=== PATIENT | male | born 1965 ===

== ENCOUNTER 2018-07-26 01:40 | Inpatient (IN) ==
[2018-07-26] MEDS ORDERED: ALBUT/IPRATROP 3MG/0.5MG NEB 3 ML VIAL NEB ONE (01:52)
[2018-07-26] MEDS ORDERED: MAGNESIUM SULFATE / D5W 1 GM/100 ML BAG IV ONE (01:52)
[2018-07-26] MEDS ORDERED: cefTRIAXone SODIUM 1,000 MG/50 ML BAG IV STA (02:07)
--- NOTE | 2018-07-26 02:17 | Emergency Department Note ---
History of Present Illness General Chief complaint: Shortness of Breath/Dyspnea History of Present Illness Maximum Pain Intensity: 6 This 53-year-old presents to the ER complaining of shortness of breath with productive cough yellow-green sputum who has COPD and asthma Location: Chest Quality: Hard to breathe Severity: Severe Duration: Past few days Timing: Past few days Context: Symptoms got worse and patient came here Modifying factors: better with nebulizer; worse with activity The present give the patient Solu-Medrol and prednisone today. He has had a few nebulizers. No improvement. Patient, as of chest pain and shortness of breath with productive cough. Patient denies flulike illness, abdominal pain, leg pain or swelling, fevers, vomiting, diarrhea. No history of intubation. He has not seen a lung doctor yet. Home Medications Home Medications Medication Instructions Recorded Confirmed Type bisacodyl 20 mg PO DAILY 07/06/18 07/26/18 History ciclesonide [Alvesco] 1 puff INHALATION BID 07/06/18 07/26/18 History ipratropium-albuterol 3 ml INHALATION QID PRN 07/06/18 07/26/18 History levalbuterol tartrate [Xopenex HFA] 2 inh INHALATION QID PRN 07/06/18 07/26/18 History mirtazapine 45 mg PO HS 07/06/18 07/26/18 History phenytoin sodium extended 300 mg PO HS 07/06/18 07/26/18 History salmeterol [Serevent Diskus] 1 inh INHALATION BID 07/06/18 07/26/18 History sertraline 100 mg PO HS 07/06/18 07/26/18 History umeclidinium [Incruse Ellipta] 1 inh INHALATION DAILY 07/06/18 07/26/18 History polyethylene glycol 3350 [Miralax] 17 g PO UD 07/26/18 07/26/18 History polyethylene glycol 3350 [Miralax] 17 g PO UD 07/26/18 07/26/18 History Allergies Allergy/AdvReac Type Severity Reaction Status Date / Time Penicillins Allergy Unknown Unverified 07/26/18 04:34 Past Med/Surg History Medical History Bronchitis COPD (chronic obstructive pulmonary disease) Surgical History History of open heart surgery Social History Current Living Situation: Other Current Living Situation Comment: [place] Other Information That Helps Us Care for You: No Feels Safe at Home: Yes Safety Concerns: Feels Safe At This Time Smoking Status: Former smoker Tobacco Type: cigarettes Do You Dip or Chew Tobacco: No Smoking End Date: 7 years ago Second Hand Exposure: Yes Tobacco Cessation Education Requested by Patient: No Hx Alcohol Use: No Hx Substance Use: No Beliefs That Will Affect Care: None Communication Ability: Effective [employer] Tenn[employer] Required: No Review of Systems All systems reviewed & are unremarkable except as noted in HPI & below Physical Exam Vital Signs Vital Signs - 24 hr 07/26/18 01:43 07/26/18 02:00 07/26/18 02:05 Temperature 37.0 C Temperature Source Oral Sepsis Recent Fever Within 48 Hours No Sepsis Action Taken by Nursing No Action Required Pulse Rate 146 H 124 H Pulse Rate [Radial] 117 H Pulse Rate from SpO2 Sensor 122 H Pulse Rhythm Regular Pulse Rhythm [Radial] Pulse Strength Normal Pulse Strength [Radial] Respiratory Rate 30 H 15 22 Respiratory Effort / Characteristics Labored Spontaneous Respiratory Depth Normal Respiratory Pattern Tachypnea Blood Pressure 144/105 H 118/102 H Blood Pressure [Left Arm] Blood Pressure [Right Arm] Blood Pressure Mean 118 107 Blood Pressure Mean [Left Arm] Blood Pressure Mean [Right Arm] Blood Pressure Position Sitting Blood Pressure Position [Left Arm] Blood Pressure Position [Right Arm] Pulse Oximetry 92 98 99 Oxygen Delivery Method Room Air Nasal Cannula Oxygen Flow Rate 4 07/26/18 02:30 07/26/18 03:00 07/26/18 03:30 Temperature Temperature Source Sepsis Recent Fever Within 48 Hours Sepsis Action Taken by Nursing Pulse Rate 107 H 108 H Pulse Rate [Radial] Pulse Rate from SpO2 Sensor 104 H 109 H 120 H Pulse Rhythm Pulse Rhythm [Radial] Pulse Strength Pulse Strength [Radial] Respiratory Rate 14 15 17 Respiratory Effort / Characteristics Respiratory Depth Respiratory Pattern Blood Pressure 119/87 126/83 113/85 Blood Pressure [Left Arm] Blood Pressure [Right Arm] Blood Pressure Mean 97 97 94 Blood Pressure Mean [Left Arm] Blood Pressure Mean [Right Arm] Blood Pressure Position Blood Pressure Position [Left Arm] Blood Pressure Position [Right Arm] Pulse Oximetry 100 100 92 Oxygen Delivery Method Oxygen Flow Rate 07/26/18 04:00 07/26/18 04:30 07/26/18 05:03 Temperature 36.5 C Temperature Source Oral Sepsis Recent Fever Within 48 Hours Sepsis Action Taken by Nursing Pulse Rate 109 H Pulse Rate [Radial] 109 H 108 H Pulse Rate from SpO2 Sensor 109 H Pulse Rhythm Pulse Rhythm [Radial] Regular Regular Pulse Strength Pulse Strength [Radial] Normal Normal Respiratory Rate 25 H 18 20 Respiratory Effort / Characteristics Non-Labored Spontaneous SOB on Exertion Respiratory Depth Normal Normal Respiratory Pattern Regular Blood Pressure 119/78 Blood Pressure [Left Arm] 134/80 Blood Pressure [Right Arm] 133/79 Blood Pressure Mean 91 Blood Pressure Mean [Left Arm] 98 Blood Pressure Mean [Right Arm] 97 Blood Pressure Position Blood Pressure Position [Left Arm] Lying Blood Pressure Position [Right Arm] Sitting Pulse Oximetry 93 94 91 Oxygen Delivery Method Room Air Room Air Oxygen Flow Rate PHYSICAL EXAM: Vital Signs: Reviewed Nurse's notes. Oxygen saturation was 91% on room air. GENERAL: Male working to breathe in TIKI.VN, Alert, oriented and coherent. The patient is not able to speak in complete sentences. NECK: Supple , non-tender. CHEST: Symmetrical expansion. + retractions + accessory muscle use. HEART: Regular rate and normal heart sounds LUNGS: Breath sounds equal but significantly diminished in intensity on both sides. Bilateral wheezes heard but no rales or pleuritic rub. SKIN: The skin was without rashes, erythema, edema, or bruising. There is no tenting of the skin. Capillary reflex less than 2 seconds. HEAD: Normocephalic atraumatic. EARS: External auditory canals clear, tympanic membranes pearly vogel without erythema or effusion bilaterally. EYES: Pupils equal round and reactive to light and accommodation. Conjunctivae without injection, sclerae without icterus. Extraocular movements intact. NOSE: Patent, turbinates without inflammation or discharge. MOUTH: Mucous membranes moist. Pharynx without erythema or exudate. Uvula midline. Airway patent. Tongue does not deviate. ABDOMEN: Positive bowel sounds x 4. Normal tympanic percussion. Soft, nontender, without masses or organomegaly. Love sign negative. No guarding or rebound tenderness. MUSCULOSKELETAL: No muscle atrophy, erythema, or edema noted. NEURO: Patient was alert and oriented to person place and time. Normal sensation to light and sharp touch. No focal neurological deficits. Course Administered Medications Ioversol (Optiray 320 100ml) 100 ml IV ONCE PRN PRN Reason: Interaction Checking Stop: 07/30/18 04:52 Last Admin: 07/26/18 04:53 Dose: 94 ml Discontinued Medications Albuterol (Duoneb) 12 ml NEB ONE ONE Stop: 07/26/18 01:53 Last Admin: 07/26/18 02:04 Dose: 12 ml Magnesium Sulfate/Dextrose (Magnesium Sulfate / D5w) 1 gm in 100 mls @ 100 mls/ hr IV ONE ONE Stop: 07/26/18 02:51 Last Infusion: 07/26/18 02:21 Dose: 0 mls/hr Admin: 07/26/18 01:59 Dose: 300 mls/hr Ceftriaxone Sodium (Rocephin) 1,000 mg in 50 mls @ 100 mls/hr IV NOW STA Stop: 07/26/18 02:36 Last Infusion: 07/26/18 02:51 Dose: 0 mls/hr Admin: 07/26/18 02:21 Dose: 100 mls/hr Sodium Chloride (Nss 1000ml) 1,000 mls @ 999 mls/hr IV .Q1H1M ONE Stop: 07/26/18 04:17 Last Infusion: 07/26/18 05:24 Dose: 0 mls/hr Admin: 07/26/18 03:35 Dose: 999 mls/hr Medical Decision Making Medical Records Attestation: I reviewed the patient's medical records. Home Medications Current Medication List: was personally reviewed by me Laboratory Data Attestation: I reviewed the patient's lab results. Result diagrams: 07/26/18 02:05 07/26/18 02:05 Lab Results 07/26/18 07/26/18 07/26/18 Range/Units 01:48 02:03 02:05 WBC 12.05 H (4.8-10.8) K/uL RBC 4.96 (4.7-6.1) M/uL Hgb 14.3 (14.0-18.0) g/dL Hct 43.0 (42-52) % MCV 86.7 (80-100) fL MCH 28.8 (25-34) pg MCHC 33.3 (32-36) g/dL RDW Std Deviation 45.6 (36.4-46.3) fL RDW Coeff of Rodrigue 14.5 (11.5-14.5) % Plt Count 309 (130-400) K/uL MPV 9.2 (7.4-10.4) fL Immature Gran % (Auto) 0.2 % Neut % (Auto) 87.8 % Lymph % (Auto) 7.0 % Ashley % (Auto) 1.1 % Eos % (Auto) 3.5 % Baso % (Auto) 0.4 % Immature Gran # (Auto) 0.02 (0.00-0.02) K/uL Neut # (Auto) 10.59 H (1.4-6.5) K/uL Lymph # (Auto) 0.84 L (1.2-3.4) K/uL Ashley # (Auto) 0.13 (0.11-0.59) K/uL Eos # (Auto) 0.42 (0-0.5) K/uL Baso # (Auto) 0.05 (0-0.2) K/uL PT (9.0-12.0) Seconds INR (0.9-1.1) APTT (21.0-31.0) Seconds PTT Ratio ABG pH 7.37 (7.35-7.45) ABG pCO2 44 (35-46) mmHg ABG pO2 60 L (80-95) mm/Hg ABG HCO3 25 H (19-24) mmol/L ABG O2 Saturation 89.7 L (90-95) % ABG Base Excess -0.9 (-9-1.8) mEq/L Gianfranco Test POS (Pos) Barometric Pressure 744.1 mm/Hg Oxygen Given 4 L Sodium (136-145) mmol/L Potassium (3.5-5.1) mmol/L Chloride (98-107) mmol/L Carbon Dioxide (21-32) mmol/L Anion Gap (3-11) BUN (7-18) mg/dl Creatinine (0.6-1.4) mg/dl Est Cr Clr Drug Dosing ml/min Est GFR ( Amer) Est GFR (Non-Af Amer) BUN/Creatinine Ratio (10-20) Glucose (70-99) mg/dl Calcium (8.5-10.1) mg/dl Magnesium (1.8-2.4) mg/dl Total Bilirubin (0.2-1) mg/dl AST (15-37) U/L ALT (12-78) U/L Alkaline Phosphatase (45-117) U/L Lactate Dehydrogenase (87-241) U/L Troponin I (0-0.045) ng/ml Total Protein (6.4-8.2) gm/dl Albumin (3.4-5.0) gm/dl Globulin (2.5-4.0) gm/dl Albumin/Globulin Ratio (0.9-2) Specimen Hemolysis Urine Color Urine Appearance (Clear) Urine pH (4.5-7.5) Ur Specific [place] (1.000-1.030) Urine Protein (Negative) Urine Glucose (UA) (Negative) Urine Ketones (Negative) Urine Blood (Negative) Urine Nitrite (Negative) Urine Bilirubin (Negative) Urine Urobilinogen (Negative) Ur Leukocyte Esterase (Negative) Influenza Type A (PCR) Neg for Influ A (Neg) Influenza Type B (PCR) Neg for Influ B (Neg) 07/26/18 07/26/18 07/26/18 Range/Units 02:05 02:05 02:05 WBC (4.8-10.8) K/uL RBC (4.7-6.1) M/uL Hgb (14.0-18.0) g/dL Hct (42-52) % MCV (80-100) fL MCH (25-34) pg MCHC (32-36) g/dL RDW Std Deviation (36.4-46.3) fL RDW Coeff of Rodrigue (11.5-14.5) % Plt Count (130-400) K/uL MPV (7.4-10.4) fL Immature Gran % (Auto) % Neut % (Auto) % Lymph % (Auto) % Ashley % (Auto) % Eos % (Auto) % Baso % (Auto) % Immature Gran # (Auto) (0.00-0.02) K/uL Neut # (Auto) (1.4-6.5) K/uL Lymph # (Auto) (1.2-3.4) K/uL Ashley # (Auto) (0.11-0.59) K/uL Eos # (Auto) (0-0.5) K/uL Baso # (Auto) (0-0.2) K/uL PT 10.9 (9.0-12.0) Seconds INR 1.1 (0.9-1.1) APTT 27.1 (21.0-31.0) Seconds PTT Ratio 1.0 ABG pH (7.35-7.45) ABG pCO2 (35-46) mmHg ABG pO2 (80-95) mm/Hg ABG HCO3 (19-24) mmol/L ABG O2 Saturation (90-95) % ABG Base Excess (-9-1.8) mEq/L Gianfranco Test (Pos) Barometric Pressure mm/Hg Oxygen Given Sodium 140 (136-145) mmol/L Potassium 4.1 (3.5-5.1) mmol/L Chloride 109 H (98-107) mmol/L Carbon Dioxide 26 (21-32) mmol/L Anion Gap 5.0 (3-11) BUN 12 (7-18) mg/dl Creatinine 1.29 (0.6-1.4) mg/dl Est Cr Clr Drug Dosing 52.4 ml/min Est GFR ( Amer) 71.9 Est GFR (Non-Af Amer) 62.0 BUN/Creatinine Ratio 9.5 L (10-20) Glucose 129 H (70-99) mg/dl Calcium 8.5 (8.5-10.1) mg/dl Magnesium 2.5 H (1.8-2.4) mg/dl Total Bilirubin 0.3 (0.2-1) mg/dl AST 28 (15-37) U/L ALT 24 (12-78) U/L Alkaline Phosphatase 75 (45-117) U/L Lactate Dehydrogenase 250 H (87-241) U/L Troponin I 0.015 (0-0.045) ng/ml Total Protein 7.4 (6.4-8.2) gm/dl Albumin 4.1 (3.4-5.0) gm/dl Globulin 3.3 (2.5-4.0) gm/dl Albumin/Globulin Ratio 1.2 (0.9-2) Specimen Hemolysis Urine Color Urine Appearance (Clear) Urine pH (4.5-7.5) Ur Specific [place] (1.000-1.030) Urine Protein (Negative) Urine Glucose (UA) (Negative) Urine Ketones (Negative) Urine Blood (Negative) Urine Nitrite (Negative) Urine Bilirubin (Negative) Urine Urobilinogen (Negative) Ur Leukocyte Esterase (Negative) Influenza Type A (PCR) (Neg) Influenza Type B (PCR) (Neg) 07/26/18 Range/Units 04:15 WBC (4.8-10.8) K/uL RBC (4.7-6.1) M/uL Hgb (14.0-18.0) g/dL Hct (42-52) % MCV (80-100) fL MCH (25-34) pg MCHC (32-36) g/dL RDW Std Deviation (36.4-46.3) fL RDW Coeff of Rodrigue (11.5-14.5) % Plt Count (130-400) K/uL MPV (7.4-10.4) fL Immature Gran % (Auto) % Neut % (Auto) % Lymph % (Auto) % Ashley % (Auto) % Eos % (Auto) % Baso % (Auto) % Immature Gran # (Auto) (0.00-0.02) K/uL Neut # (Auto) (1.4-6.5) K/uL Lymph # (Auto) (1.2-3.4) K/uL Ashley # (Auto) (0.11-0.59) K/uL Eos # (Auto) (0-0.5) K/uL Baso # (Auto) (0-0.2) K/uL PT (9.0-12.0) Seconds INR (0.9-1.1) APTT (21.0-31.0) Seconds PTT Ratio ABG pH (7.35-7.45) ABG pCO2 (35-46) mmHg ABG pO2 (80-95) mm/Hg ABG HCO3 (19-24) mmol/L ABG O2 Saturation (90-95) % ABG Base Excess (-9-1.8) mEq/L Gianfranco Test (Pos) Barometric Pressure mm/Hg Oxygen Given Sodium (136-145) mmol/L Potassium (3.5-5.1) mmol/L Chloride (98-107) mmol/L Carbon Dioxide (21-32) mmol/L Anion Gap (3-11) BUN (7-18) mg/dl Creatinine (0.6-1.4) mg/dl Est Cr Clr Drug Dosing ml/min Est GFR ( Amer) Est GFR (Non-Af Amer) BUN/Creatinine Ratio (10-20) Glucose (70-99) mg/dl Calcium (8.5-10.1) mg/dl Magnesium (1.8-2.4) mg/dl Total Bilirubin (0.2-1) mg/dl AST (15-37) U/L ALT (12-78) U/L Alkaline Phosphatase (45-117) U/L Lactate Dehydrogenase (87-241) U/L Troponin I (0-0.045) ng/ml Total Protein (6.4-8.2) gm/dl Albumin (3.4-5.0) gm/dl Globulin (2.5-4.0) gm/dl Albumin/Globulin Ratio (0.9-2) Specimen Hemolysis Urine Color Yellow Urine Appearance Clear (Clear) Urine pH 5.0 (4.5-7.5) Ur Specific [place] 1.025 (1.000-1.030) Urine Protein Negative (Negative) Urine Glucose (UA) Negative (Negative) Urine Ketones Negative (Negative) Urine Blood Negative (Negative) Urine Nitrite Negative (Negative) Urine Bilirubin Negative (Negative) Urine Urobilinogen Negative (Negative) Ur Leukocyte Esterase Negative (Negative) Influenza Type A (PCR) (Neg) Influenza Type B (PCR) (Neg) MDM Narrative Prior records/ancillary studies reviewed. Triage Nursing notes reviewed. Additional history obtained from the family. The patient's history was concerning for respiratory difficulties. Differential diagnosis: Etiologies such as infections, reactive airway disease, pneumonia, pneumothorax , COPD, CHF, cardiac ischemia, pulmonary embolism, musculoskeletal, gastrointestinal, as well as others were entertained. Physical examination: As above. ER treatment provided: Nebulizer, magnesium, IV fluids On reassessment the patient felt better. Diagnostic interpretation by me: The electrocardiogram was negative for acute ischemic or pathologic change. Poor baseline, normal sinus, normal intervals, no acute ST-T wave changes. Impression normal sinus rhythm interpreted by myself I think arrhythmia is unlikely. EKG shows normal sinus rhythm with no interval abnormalities such as QT prolongation or WPW. There are no findings to suggest Brugada syndrome. Cardiac monitoring in the emergency department reveals no tachycardic or bradycardic dysrhythmia. Hypertrophic cardiomyopathy was considered but there are no clear historical elements pointing toward this. EKG is not suggestive. The QRS voltage is not extremely large and there are no suggestive Q waves. The labs revealed negative troponin. ABG reviewed HIV pending. Legionella pending Imaging studies: CTA CHEST: Centrilobular emphysema. No acute airspace opacities. Peribronchial wall thickening most prominent in the right lower lobe could represent bronchitis. Scattered areas of mucus plugging are noted in the right upper lobe and right lower lobe. No pleural effusion or pneumothorax. No aortic dissection or aneurysm. No evidence of pulmonary emboli. Radiologist: Kingston David MD Consultation: A consultation was placed with Dr. Dickerson hospitalist. The case was discussed and diagnostics were reviewed. The patient was evaluated in the ER for further treatment. This appears to be consistent with COPD exacerbation. Patient still working to breathe. Medicine was consulted. He is agreeable treatment plan of admission. Medicine asked for additional testing this was ordered. By the evaluation outlined above emergent etiologies such as CHF, cardiac ischemia, pulmonary embolism, pneumonia, pneumothorax, musculoskeletal, serious bacterial infections, as well as others were deemed relatively unlikely. The pt informed about the findings as listed above. All questions were answered and pleased with the treatment. Case reviewed with my attending The chart was completed utilizing [employer] Speech voice recognition software. Grammatical errors, random word insertions, pronoun errors, and incomplete sentences are an occassional consequence of this system due to software limitations, ambient noise, and hardware issues. Any formal questions or concerns about the content, text, or information contained within the body of this dictation should be directly addressed to the physician freezer assistant for clarification. Impression & Plan Acute exacerbation of chronic obstructive pulmonary disease (COPD) Discharge Plan Visit Data *Final* Discharge Date/Time: 07/26/18 04:32 Chief Complaint: Shortness of Breath/Dyspnea ED Provider: Nell Bae ED Midlevel Provider: Christen Neff Discharge Problem: Acute exacerbation of chronic obstructive pulmonary disease (COPD) Patient Disposition: Admitted As Inpatient Condition: Fair Discharge Instructions Interventions: ED Discharge Assessment Last Done: 07/26/18 04:32
[2018-07-26 02:21] LABS: Basophils # (auto) 0.05 K/uL (0-0.2); Basophils % (auto) 0.4 %; Eosinophils # (auto) 0.42 K/uL (0-0.5); Eosinophils % (auto) 3.5 %; Hemoglobin 14.3 g/dL (14.0-18.0); Immature Granulocytes # (auto) 0.02 K/uL (0.00-0.02); Immature Granulocytes % (auto) 0.2 %; Lymphocytes # (auto) 0.84 K/uL (1.2-3.4); Mean Corpuscular Hgb Conc 33.3 g/dL (32-36); Mean Corpuscular Volume 86.7 fL (80-100); Mean Platelet Volume 9.2 fL (7.4-10.4); Monocytes # (auto) 0.13 K/uL (0.11-0.59); Monocytes % (auto) 1.1 %; Neutrophils # (auto) 10.59 K/uL (1.4-6.5); Neutrophils % (auto) 87.8 %; Platelet Count 309 K/uL (130-400); RDW Coefficient of Variation 14.5 % (11.5-14.5); RDW Standard Deviation 45.6 fL (36.4-46.3); Red Blood Count 4.96 M/uL (4.7-6.1); White Blood Count 12.05 K/uL (4.8-10.8)
[2018-07-26 02:22] LABS: HCO3 ABG 25 mmol/L (19-24); Oxygen Saturation ABG 89.7 % (90-95); PCO2 ABG 44 mmHg (35-46); PO2 ABG 60 mm/Hg (80-95); pH ABG 7.37 (7.35-7.45)
[2018-07-26 02:23] LABS: Allen Test POS (Pos)
[2018-07-26 02:35] LABS: INR 1.1 (0.9-1.1); Partial Thromboplastin Time 27.1 Seconds (21.0-31.0); Prothrombin Time 10.9 Seconds (9.0-12.0)
[2018-07-26 02:39] LABS: Influenza A virus by PCR Neg for Influ A (Neg); Influenza B virus by PCR Neg for Influ B (Neg)
[2018-07-26 02:51] LABS: Albumin Globulin Ratio 1.2 (0.9-2); Albumin Level 4.1 gm/dl (3.4-5.0); BUN Creatinine Ratio 9.5 (10-20); Bilirubin,Total 0.3 mg/dl (0.2-1); Calcium 8.5 mg/dl (8.5-10.1); Creatinine Clr Calc Pharmacy 52.4 ml/min; Est GFR (African American) 71.9; Globulin 3.3 gm/dl (2.5-4.0); Magnesium 2.5 mg/dl (1.8-2.4); Potassium 4.1 mmol/L (3.5-5.1); Total Protein 7.4 gm/dl (6.4-8.2); Troponin I 0.015 ng/ml (0-0.045)
[2018-07-26] MEDS ORDERED: SODIUM CHLORIDE 0.9% 1000ML 1,000 ML IV ONE (03:17)
--- NOTE | 2018-07-26 04:30 | History & Physical Report ---
Date of Service July 26, 2018 Assessment & Plan (1) Acute respiratory failure with hypoxia: Acute respiratory failure with hypoxia/COPD exacerbation-- Admit to monitored bed. ABG: PH 7.37, PCO2 44, PO2 60, and pulse ox 89% on 4 L nasal cannula. Vancomycin IV per pharmacokinetic monitoring Zosyn 3.375 mg IV every 8 hours Azithromycin 500 mg IV every 24 hours Duonebs every 4 hours while awake and every 2 hours when necessary. Solu-Medrol 60 mg IV every 6 hours Guaifenesin extended release 600 mg by mouth twice a day Nasal cannula oxygen titrate to keep pulse ox greater than or equal to 92% Sputum Gram stain and culture. Order CTA of chest to assess for possible PE. Order HIV. Order Legionella, LDH. Hold outpatient regimen Present on Admission?: Yes (2) COPD exacerbation: As above Present on Admission?: Yes (3) Seizure disorder: Continue phenytoin extended release 300 mg at bedtime. Check phenytoin level Present on Admission?: Yes (4) Insomnia: Insomnia/depression continue sertraline and mirtazapine. Present on Admission?: Yes (5) Depression: As above Present on Admission?: Yes (6) Constipation: Continue MiraLAX as needed Present on Admission?: Yes History of Present Illness Chief Complaint: The patient presents to the emergency department with 3 days of worsening left-sided chest discomfort, shortness of breath, dyspnea on exertion and cough productive of yellow-green sputum. Primary Care Provider: [facility] The patient is a 53-year-old male resident of [facility], with a past medical history including COPD and asthma, who was at 3 days of worsening left-sided chest discomfort, shortness of breath, dyspnea exertion, and cough productive of yellow-green sputum. He was started on a azithromycin 250 mg 3 times per week, Solu-Medrol 25 mg IV today and prednisone 60 mg p.o. today, has continued to worsen throughout the day, and thus presents to the ED for assessment. Allergies Allergy/AdvReac Type Severity Reaction Status Date / Time Penicillins Allergy Unknown Unverified 07/06/18 10:07 Home Medications Home Medications Medication Instructions Recorded Confirmed Type azithromycin 250 mg PO 3XWK 07/06/18 07/06/18 History bisacodyl 20 mg PO DAILY 07/06/18 07/06/18 History ciclesonide [Alvesco] 1 puff INHALATION BID 07/06/18 07/06/18 History ipratropium-albuterol 3 ml INHALATION DIRECTED 07/06/18 07/06/18 History ipratropium-albuterol 3 ml INHALATION QID PRN 07/06/18 07/06/18 History levalbuterol tartrate [Xopenex HFA] 2 inh INHALATION QID PRN 07/06/18 07/06/18 History methylprednisolone sod suc(PF) 125 mg IV QID 07/06/18 07/06/18 History [Solu-Medrol (PF)] mirtazapine 45 mg PO HS 07/06/18 07/06/18 History phenytoin sodium extended 300 mg PO HS 07/06/18 07/06/18 History polyethylene glycol 3350 [Miralax] 1 dose PO DIRECTED 07/06/18 07/06/18 History salmeterol [Serevent Diskus] 1 inh INHALATION BID 07/06/18 07/06/18 History sertraline 100 mg PO HS 07/06/18 07/06/18 History umeclidinium [Incruse Ellipta] 1 inh INHALATION DAILY 07/06/18 07/06/18 History polyethylene glycol 3350 [Miralax] 17 g PO UD 07/26/18 07/26/18 History Past Med/Surg History Medical History Bronchitis COPD (chronic obstructive pulmonary disease) Surgical History History of open heart surgery Social History Current Living Situation: Other Current Living Situation Comment: in longterm Feels Safe at Home: Yes Smoking Status: Former smoker Review of Systems The patient denies lower extremity swelling, sore throat, fevers, chills, sweats , nausea, vomiting, diarrhea , constipation, abdominal pain, pelvic pain, blood in urine or stool, dysuria, urinary frequency or urgency, lightheadedness , dizziness, headache, memory loss, loss of consciousness, rash, abnormal bruising or bleeding, imbalance, focal weakness, numbness or tingling in arms or legs, generalized arthralgias or myalgias, back or neck pain, or night sweats. The review of systems is otherwise negative other than for that already noted above, and at least 10 systems have been reviewed. Physical Exam 2 Vital Signs (Past 24 Hours): Last Vital Signs Temp 37.0 C 07/26/18 01:43 Pulse 109 H 07/26/18 04:00 Resp 25 H 07/26/18 04:00 BP 119/78 07/26/18 04:00 Pulse Ox 93 07/26/18 04:00 Physical Exam: The patient is awake, alert and oriented 3, normocephalic and atraumatic, lying in bed and in no acute distress. HEENT--PERRL, EOMI, mucous membranes and oropharynx normal. Neck--supple. No JVD. No bruits. Thyroid normal, trachea midline, no adenopathy. Heart--normal S1 and S2. No murmurs, rubs or gallops. Lungs--diffuse inspiratory and expiratory wheezes bilaterally. Abdomen--normal bowel sounds and soft. Nontender. Nondistended. Extremities--no cyanosis or clubbing. No edema. There are good distal pulses b/ l. Dermatologic--normal skin turgor, normal color, no abnormal lymph nodes, no rash. Neurologic--cranial nerves II through XII grossly intact. Rheumatologic--normal range of motion. Psychiatric--normal affect. Results & Data Laboratory Results Laboratory Results WBC 12.05 K/uL (4.8-10.8) H 07/26/18 02:05 RBC 4.96 M/uL (4.7-6.1) 07/26/18 02:05 Hgb 14.3 g/dL (14.0-18.0) 07/26/18 02:05 Hct 43.0 % (42-52) 07/26/18 02:05 MCV 86.7 fL (80-100) 07/26/18 02:05 MCH 28.8 pg (25-34) 07/26/18 02:05 MCHC 33.3 g/dL (32-36) 07/26/18 02:05 RDW Std Deviation 45.6 fL (36.4-46.3) 07/26/18 02:05 RDW Coeff of Rodrigue 14.5 % (11.5-14.5) 07/26/18 02:05 Plt Count 309 K/uL (130-400) 07/26/18 02:05 MPV 9.2 fL (7.4-10.4) 07/26/18 02:05 Immature Gran % (Auto) 0.2 % 07/26/18 02:05 Neut % (Auto) 87.8 % 07/26/18 02:05 Lymph % (Auto) 7.0 % 07/26/18 02:05 [place] % (Auto) 1.1 % 07/26/18 02:05 Eos % (Auto) 3.5 % 07/26/18 02:05 Baso % (Auto) 0.4 % 07/26/18 02:05 Immature Gran # (Auto) 0.02 K/uL (0.00-0.02) 07/26/18 02:05 Neut # (Auto) 10.59 K/uL (1.4-6.5) H 07/26/18 02:05 Lymph # (Auto) 0.84 K/uL (1.2-3.4) L 07/26/18 02:05 [place] # (Auto) 0.13 K/uL (0.11-0.59) 07/26/18 02:05 Eos # (Auto) 0.42 K/uL (0-0.5) 07/26/18 02:05 Baso # (Auto) 0.05 K/uL (0-0.2) 07/26/18 02:05 PT 10.9 Seconds (9.0-12.0) 07/26/18 02:05 INR 1.1 (0.9-1.1) 07/26/18 02:05 APTT 27.1 Seconds (21.0-31.0) 07/26/18 02:05 PTT Ratio 1.0 07/26/18 02:05 ABG pH 7.37 (7.35-7.45) 07/26/18 02:03 ABG pCO2 44 mmHg (35-46) 07/26/18 02:03 ABG pO2 60 mm/Hg (80-95) L 07/26/18 02:03 ABG HCO3 25 mmol/L (19-24) H 07/26/18 02:03 ABG O2 Saturation 89.7 % (90-95) L 07/26/18 02:03 ABG Base Excess -0.9 mEq/L (-9-1.8) 07/26/18 02:03 Gianfranco Test POS (Pos) 07/26/18 02:03 Barometric Pressure 744.1 mm/Hg 07/26/18 02:03 Oxygen Given 4 L 07/26/18 02:03 Sodium 140 mmol/L (136-145) 07/26/18 02:05 Potassium 4.1 mmol/L (3.5-5.1) 07/26/18 02:05 Chloride 109 mmol/L (98-107) H 07/26/18 02:05 Carbon Dioxide 26 mmol/L (21-32) 07/26/18 02:05 Anion Gap 5.0 (3-11) 07/26/18 02:05 BUN 12 mg/dl (7-18) 07/26/18 02:05 Creatinine 1.29 mg/dl (0.6-1.4) 07/26/18 02:05 Est Cr Clr Drug Dosing 52.4 ml/min 07/26/18 02:05 Est GFR ( Amer) 71.9 07/26/18 02:05 Est GFR (Non-Af Amer) 62.0 07/26/18 02:05 BUN/Creatinine Ratio 9.5 (10-20) L 07/26/18 02:05 Glucose 129 mg/dl (70-99) H 07/26/18 02:05 Calcium 8.5 mg/dl (8.5-10.1) 07/26/18 02:05 Magnesium 2.5 mg/dl (1.8-2.4) H 07/26/18 02:05 Total Bilirubin 0.3 mg/dl (0.2-1) 07/26/18 02:05 AST 28 U/L (15-37) 07/26/18 02:05 ALT 24 U/L (12-78) 07/26/18 02:05 Alkaline Phosphatase 75 U/L (45-117) 07/26/18 02:05 Troponin I 0.015 ng/ml (0-0.045) 07/26/18 02:05 Total Protein 7.4 gm/dl (6.4-8.2) 07/26/18 02:05 Albumin 4.1 gm/dl (3.4-5.0) 07/26/18 02:05 Globulin 3.3 gm/dl (2.5-4.0) 07/26/18 02:05 Albumin/Globulin Ratio 1.2 (0.9-2) 07/26/18 02:05 Specimen Hemolysis 07/26/18 02:05 Influenza Type A (PCR) Neg for Influ A (Neg) 07/26/18 01:48 Influenza Type B (PCR) Neg for Influ B (Neg) 07/26/18 01:48 Code Status & VTE Plan Code Status Full code VTE Prophylaxis Plan VTE Prophylaxis will be ordered: Yes
[2018-07-26 04:44] LABS: Appearance Urine Clear (Clear); Bilirubin Urine Negative (Negative); Color Urine Yellow; Glucose Urine UA Negative (Negative); Ketones Urine Negative (Negative); Leukocyte Esterase Urine Negative (Negative); Nitrite Urine Negative (Negative); Protein Urine Negative (Negative); Specific Gravity Urine 1.025 (1.000-1.030); Urobilinogen Urine Negative (Negative)
[2018-07-26] MEDS ORDERED: IOVERSOL 100ml IV PRN (04:53)
[2018-07-26] MEDS ORDERED: methylPREDNISolone 125 MG/2 ML VIAL IV SCH (05:09)
[2018-07-26] MEDS ORDERED: VANCOMYCIN CONSULT ACTIVE PRN (05:09)
[2018-07-26] MEDS: methylPREDNISolone 60 MG in SYRINGE 0 ML IV SCH ×4 (05:48→23:04)
[2018-07-26] MEDS ORDERED: VANCOMYCIN HCL 1,250 MG in SODIUM CHLORIDE 0.9% 250 ML IV SCH (06:00)
--- NOTE | 2018-07-26 07:27 | XRay Report ---
XR chest 1V portable CLINICAL HISTORY: 53 years-old Male presenting with Dyspnea. TECHNIQUE: Portable upright AP view of the chest was obtained. COMPARISON: 07/06/2018. FINDINGS: Median sternotomy wires. Cardiomediastinal silhouette slightly narrowed. Lungs are hyperinflated. Het erogeneity of lung parenchyma. No focal opacity. No large effusion or pneumothorax. Old posterior rig ht rib fracture noted. Upper abdomen normal. IMPRESSION: 1. Findings suggest emphysema. No focal infiltrate to suggest pneumonia. Electronically signed by: Cyrus Marquez M.D. 07/26/2018 7:26 AM
--- NOTE | 2018-07-26 07:47 | Pharmacy Report ---
Pharmacy Abx Initial Consult - Date of Service July 26, 2018 - Pharmacy Dosing Scope Date of Consult: 07/26/18 Consultation requested by: Dr. Lawson Pharmacy is consulted to initiate vancomycin IV dosing therapy, order appropriate labs and adjust drug dose/frequency. - Subjective The patient is a 53 year old M admitted on 07/26/18 03:59. - Objective Height: 5 ft 9 in Weight: 56.5 kg Vital Signs (Past 12hrs): Vital Signs Temp Pulse Pulse Resp BP BP BP 07/26/18 07:11 36.8 C 107 H 16 109/73 07/26/18 05:03 36.5 C 108 H 20 134/80 07/26/18 04:30 109 H 18 133/79 07/26/18 04:00 109 H 25 H 119/78 07/26/18 03:30 17 113/85 07/26/18 03:00 108 H 15 126/83 07/26/18 02:30 107 H 14 119/87 07/26/18 02:05 117 H 22 07/26/18 02:00 124 H 15 118/102 H 07/26/18 01:43 37.0 C 146 H 30 H 144/105 H Pulse Ox 07/26/18 07:11 96 07/26/18 05:03 91 07/26/18 04:30 94 07/26/18 04:00 93 07/26/18 03:30 92 07/26/18 03:00 100 07/26/18 02:30 100 07/26/18 02:05 99 07/26/18 02:00 98 07/26/18 01:43 92 Lab Results (24hrs): Laboratory Tests (24 Hours) 07/26/18 07/26/18 02:05 02:05 WBC 12.05 H Neut # (Auto) 10.59 H Creatinine 1.29 Est Cr Clr Drug Dosing 52.4 - Risk Factors for Resistance * resident in [facility] - Assessment & Plan Assessment 53 year old M admitted with worsening pulmonary function. Has had left sided chest pain x 1 week. Concern for pneumonia. Plan vancomycin for treatment of pulmonary infection Vancomycin IV * Estimated PK Parameters: Vd 0.7 L/kg, Andrey 0.048 hr-1, t1/2 14 hr * Loading dose: 1250 mg (22 mg/kg) * Maintenance dose: 1000 mg IV (17.7 mg/kg) every 16 hours (start after 12 hours since 25 mg/kg not given as loading dose) * Goal trough level for pulmonary infection : 15 to 20 mcg/mL * Trough ordered for 07/28/18 Pharmacy will continue to follow and will adjust dose/frequency as necessary. Thank you.
--- NOTE | 2018-07-26 07:50 | CT Scan Report ---
CT ANGIOGRAM OF THE CHEST CLINICAL HISTORY: Dyspnea. COMPARISON STUDY: Chest x-ray dated 07/26/2018. TECHNIQUE: Following the IV administration of 94 cc of Optiray 320, CT angiogram of the chest was per formed from the upper abdomen to the thoracic inlet utilizing the pulmonary embolus protocol. Images are reviewed in the axial, sagittal, and coronal planes. 3-D MIPS images are created and assessed. IV contrast was administered without complication. A dose lowering technique was utilized adhering to the principles of ALARA. CT DOSE: 228.37 mGy.cm FINDINGS: Thyroid: Imaged portions of the thyroid gland are normal in size and attenuation. Thoracic aorta: The thoracic aorta is normal in caliber and demonstrates standard 3-vessel arch anato my. No dissection is seen. Pulmonary vasculature: The pulmonary trunk is normal in caliber. There are no filling defects identif ied in main, lobar, or segmental pulmonary branches to suggest pulmonary embolus. Heart: The patient is status post midline sternotomy. The heart is normal in size and without pericar dial effusion. Lungs and pleural spaces: Evaluation of the lung parenchyma is degraded by motion artifact. Advanced emphysema is noted. Bullous change is noted at the apices. Postoperative change is suggested at the r ight apex. There is mild diffuse peribronchial thickening. Atelectasis is seen at the right lung base . No airspace consolidation is identified typical for pneumonia and no pleural effusion is seen. The trachea and central airways are clear. Mild mucus plugging is seen in the lower lobe airways. Mediastinum: There is no mediastinal lymphadenopathy. Cristina: Clear. Axillae: There is no axillary lymphadenopathy. Upper abdomen: A 1.3 cm cyst is noted in the upper pole of the left kidney. Subcentimeter hypodensiti es in the upper pole of the right kidney also likely represent cysts but are too small for definitive characterization. Skeletal structures: A 4 mm lucency in the right lateral 9th rib likely resent a tiny enchondroma. No lytic or blastic bony lesions are seen. Chronic posttraumatic deformity is noted in the distal right clavicle. IMPRESSION: 1. There is no evidence of pulmonary embolus in the main, lobar, or segmental pulmonary arteries. 2. Advanced emphysema. 3. There is no airspace consolidation or pleural effusion. 4. Mild diffuse peribronchial thickening suggests reactive air disease, and mucous plugging is noted in the lower lobes. Clinical correlation will be required. 5. Additional findings as above. Electronically signed by: Angel Laguerre M.D. 07/26/2018 7:49 AM
[2018-07-26] MEDS ORDERED: CEFEPIME 1,000 MG in SYRINGE 0 ML IV SCH (08:00)
[2018-07-26] MEDS: ALBUT/IPRATROP 3MG/0.5MG NEB 3 ML VIAL NEB SCH ×4 (08:21→18:38)
[2018-07-26 08:39] LABS: HCO3 ABG 19 mmol/L (19-24); Oxygen Saturation ABG 98.8 % (90-95); PCO2 ABG 32 mmHg (35-46); PO2 ABG 128 mm/Hg (80-95)
[2018-07-26 08:40] LABS: Allen Test Pos (Pos)
[2018-07-26] MEDS: ENOXAPARIN INJ 40 MG/0.4 ML SYR SQ SCH (09:46)
--- NOTE | 2018-07-26 12:04 | Family Medicine Progress Note ---
Date of Service July 26, 2018 Assessment & Plan (1) Acute exacerbation of chronic obstructive pulmonary disease (COPD): 53 y/o M with PMH COPD, Asthma, Seizure presents with worsening cough, SOB likely 2/2 COPD exacerbation and no evidence of infiltrate on CXR. 1) Acute respiratory failure with hypoxia/COPD exacerbation -ER: ABG- PH 7.37, PCO2 44, PO2 60, and pulse ox 89% on 4 L nasal cannula. Pt now on 2L NC sat 96, does not appear to have increased work of breathing. Repeat ABG 07/26: PH 7.4, PCO2 32, PO2 128 -CXR: Findings suggest emphysema. No focal infiltrate to suggest pneumonia. CTA : no evidence of PE, no focal infiltrate, Advanced emphysema, Mild diffuse peribronchial thickening suggests reactive air disease, and mucous plugging is noted in the lower lobes -Based on above findings, will cont azithromycin 500 mg IV q24. D/C Vanc/Zosyn. -Duonebs q2prn -Solu-Medrol 60 mg IV every 6 hours -Guaifenesin ER 600 mg PO BID -Sputum culture pending -will cont monitor O2, breathing -Pt complaining of CP/L arm pain--> EKG showed sinus tachy with PVCs. Unlikely cardiac etiology, likely 2/2 increased SOB/work of breathing. Trops neg. 2) Seizure disorder -Cont phenytoin ER 300 mg qPM 3) Insomnia/Depression -Cont sertraline and mirtazapine FULL DVT Prophylaxis: Lovenox Dispo: On monitor, re-assess for d/c tomorrow Supervising Physician Co-Signing Physician Notes I personally examined the patient and verified all dorsey points of history and exam, discussed case, and agree with decision making with Dr Mullen. Feeling a little bit better than before, notes breathing is still "60/40" and he feels like he has to work a bit to breathe, but he does note that he feels better than before. Chest tightness is about the same. In general he is resting in bed appearing relatively comfortable may be may be very mild respiratory distress. HEENT normocephalic atraumatic mucous membranes are moist. Cardio is regular but somewhat tachycardic. Lungs show diffuse wheezing moderate air entry no focal findings no rales no rhonchi. Chest CT reviewed personally as well as report Acute exacerbation of COPDcausing hypoxiafortunately the hypoxia is improving , he is still wheezing. Continue steroids, nebulizers, atypical coverage, supportive care. Hopefully will continue to improve. Tachycardiathis appears to be due to his respiratory illness. Continue to follow DVT prophylaxisLovenox Subjective 53 y/o M found in bed this morning in moderate acute distress. Pt had complaints of SOB and ongoing coughing with some productive yellow/green phlegm. Pt received a breathing tx and states felt better afterwards. Pt tolerating PO intake. No issues voiding. Pt reports no other acute concerns or complaints. Review of Systems All systems reviewed & are unremarkable except as noted in HPI & below Physical Exam 2 Vital Signs (Past 24 Hours): Last Vital Signs Temp 37.2 C 07/26/18 11:40 Pulse 118 H 07/26/18 11:40 Resp 20 07/26/18 11:40 BP 106/71 07/26/18 11:40 Pulse Ox 96 07/26/18 11:40 Constitutional: WD/WN, vitals as above Eyes: PERRL, conjunctivae normal, anicteric sclerae ENMT: external ear and nose normal, oropharynx normal Respiratory: inspiratory/expiratory wheezing, improving Cardiovascular: RRR, no murmur, no edema Gastrointestinal (Abdomen): normal bowel sounds, soft, nontender, no hepatosplenomegaly Skin: no rashes, warm and dry Psychiatric: A+Ox3, euthymic affect Results & Data Laboratory Results Laboratory Results - last 24 hr 07/26/18 07/26/18 07/26/18 01:48 02:03 02:05 WBC 12.05 H RBC 4.96 Hgb 14.3 Hct 43.0 MCV 86.7 MCH 28.8 MCHC 33.3 RDW Std Deviation 45.6 RDW Coeff of Rodrigue 14.5 Plt Count 309 MPV 9.2 Immature Gran % (Auto) 0.2 Neut % (Auto) 87.8 Lymph % (Auto) 7.0 [place] % (Auto) 1.1 Eos % (Auto) 3.5 Baso % (Auto) 0.4 Immature Gran # (Auto) 0.02 Neut # (Auto) 10.59 H Lymph # (Auto) 0.84 L [place] # (Auto) 0.13 Eos # (Auto) 0.42 Baso # (Auto) 0.05 PT INR APTT PTT Ratio ABG pH 7.37 ABG pCO2 44 ABG pO2 60 L ABG HCO3 25 H ABG O2 Saturation 89.7 L ABG Base Excess -0.9 Gianfranco Test POS Barometric Pressure 744.1 Oxygen Given 4 L Sodium Potassium Chloride Carbon Dioxide Anion Gap BUN Creatinine Est Cr Clr Drug Dosing Est GFR ( Amer) Est GFR (Non-Af Amer) BUN/Creatinine Ratio Glucose Calcium Magnesium Total Bilirubin AST ALT Alkaline Phosphatase Lactate Dehydrogenase Troponin I Total Protein Albumin Globulin Albumin/Globulin Ratio Specimen Hemolysis Urine Color Urine Appearance Urine pH Ur Specific [place] Urine Protein Urine Glucose (UA) Urine Ketones Urine Blood Urine Nitrite Urine Bilirubin Urine Urobilinogen Ur Leukocyte Esterase Nasal Screen MRSA (PCR) HIV 1&2 Ab/P24 Ag 4thGn Influenza Type A (PCR) Neg for Influ A Influenza Type B (PCR) Neg for Influ B 07/26/18 07/26/18 07/26/18 02:05 02:05 02:05 WBC RBC Hgb Hct MCV MCH MCHC RDW Std Deviation RDW Coeff of Rodrigue Plt Count MPV Immature Gran % (Auto) Neut % (Auto) Lymph % (Auto) [place] % (Auto) Eos % (Auto) Baso % (Auto) Immature Gran # (Auto) Neut # (Auto) Lymph # (Auto) [place] # (Auto) Eos # (Auto) Baso # (Auto) PT 10.9 INR 1.1 APTT 27.1 PTT Ratio 1.0 ABG pH ABG pCO2 ABG pO2 ABG HCO3 ABG O2 Saturation ABG Base Excess Gianfranco Test Barometric Pressure Oxygen Given Sodium 140 Potassium 4.1 Chloride 109 H Carbon Dioxide 26 Anion Gap 5.0 BUN 12 Creatinine 1.29 Est Cr Clr Drug Dosing 52.4 Est GFR ( Amer) 71.9 Est GFR (Non-Af Amer) 62.0 BUN/Creatinine Ratio 9.5 L Glucose 129 H Calcium 8.5 Magnesium 2.5 H Total Bilirubin 0.3 AST 28 ALT 24 Alkaline Phosphatase 75 Lactate Dehydrogenase 250 H Troponin I 0.015 Total Protein 7.4 Albumin 4.1 Globulin 3.3 Albumin/Globulin Ratio 1.2 Specimen Hemolysis Urine Color Urine Appearance Urine pH Ur Specific [place] Urine Protein Urine Glucose (UA) Urine Ketones Urine Blood Urine Nitrite Urine Bilirubin Urine Urobilinogen Ur Leukocyte Esterase Nasal Screen MRSA (PCR) HIV 1&2 Ab/P24 Ag 4thGn Influenza Type A (PCR) Influenza Type B (PCR) 07/26/18 07/26/18 07/26/18 04:15 04:28 05:55 WBC RBC Hgb Hct MCV MCH MCHC RDW Std Deviation RDW Coeff of Rodrigue Plt Count MPV Immature Gran % (Auto) Neut % (Auto) Lymph % (Auto) [place] % (Auto) Eos % (Auto) Baso % (Auto) Immature Gran # (Auto) Neut # (Auto) Lymph # (Auto) [place] # (Auto) Eos # (Auto) Baso # (Auto) PT INR APTT PTT Ratio ABG pH ABG pCO2 ABG pO2 ABG HCO3 ABG O2 Saturation ABG Base Excess Gianfranco Test Barometric Pressure Oxygen Given Sodium Potassium Chloride Carbon Dioxide Anion Gap BUN Creatinine Est Cr Clr Drug Dosing Est GFR ( Amer) Est GFR (Non-Af Amer) BUN/Creatinine Ratio Glucose Calcium Magnesium Total Bilirubin AST ALT Alkaline Phosphatase Lactate Dehydrogenase Troponin I Total Protein Albumin Globulin Albumin/Globulin Ratio Specimen Hemolysis Urine Color Yellow Urine Appearance Clear Urine pH 5.0 Ur Specific [place] 1.025 Urine Protein Negative Urine Glucose (UA) Negative Urine Ketones Negative Urine Blood Negative Urine Nitrite Negative Urine Bilirubin Negative Urine Urobilinogen Negative Ur Leukocyte Esterase Negative Nasal Screen MRSA (PCR) Negative HIV 1&2 Ab/P24 Ag 4thGn Neg Influenza Type A (PCR) Influenza Type B (PCR) 07/26/18 08:23 WBC RBC Hgb Hct MCV MCH MCHC RDW Std Deviation RDW Coeff of Rodrigue Plt Count MPV Immature Gran % (Auto) Neut % (Auto) Lymph % (Auto) [place] % (Auto) Eos % (Auto) Baso % (Auto) Immature Gran # (Auto) Neut # (Auto) Lymph # (Auto) [place] # (Auto) Eos # (Auto) Baso # (Auto) PT INR APTT PTT Ratio ABG pH 7.40 ABG pCO2 32 L ABG pO2 128 H ABG HCO3 19 ABG O2 Saturation 98.8 H ABG Base Excess -4.2 Gianfranco Test Pos Barometric Pressure 742.1 Oxygen Given 4L Sodium Potassium Chloride Carbon Dioxide Anion Gap BUN Creatinine Est Cr Clr Drug Dosing Est GFR ( Amer) Est GFR (Non-Af Amer) BUN/Creatinine Ratio Glucose Calcium Magnesium Total Bilirubin AST ALT Alkaline Phosphatase Lactate Dehydrogenase Troponin I Total Protein Albumin Globulin Albumin/Globulin Ratio Specimen Hemolysis Urine Color Urine Appearance Urine pH Ur Specific [place] Urine Protein Urine Glucose (UA) Urine Ketones Urine Blood Urine Nitrite Urine Bilirubin Urine Urobilinogen Ur Leukocyte Esterase Nasal Screen MRSA (PCR) HIV 1&2 Ab/P24 Ag 4thGn Influenza Type A (PCR) Influenza Type B (PCR) Medications Administered Current Inpatient Medications Albuterol (Duoneb) 3 ml NEB QIDR JOHAN Stop: 08/25/18 07:59 Last Admin: 07/26/18 10:50 Dose: 3 ml Enoxaparin Sodium (Lovenox) 40 mg SQ Q24H JOHAN Stop: 08/25/18 08:59 Last Admin: 07/26/18 09:46 Dose: 40 mg Azithromycin 500 mg/ Dextrose 255 mls @ 125 mls/hr IV Q24H JOHAN Stop: 08/02/18 08:59 Methylprednisolone 60 mg/ (Syringe) 0.96 mls @ 1.5 mls/min IV Q6 JOHAN Stop: 08/25/18 05:59 Last Admin: 07/26/18 05:48 Dose: 1.5 mls/min Vancomycin HCl 1,000 mg/ (Sodium Chloride) 270 mls @ 125 mls/hr IV Q16H JOHAN Stop: 08/02/18 17:59 Ioversol (Optiray 320 100ml) 100 ml IV ONCE PRN PRN Reason: Interaction Checking Stop: 07/30/18 04:52 Last Admin: 07/26/18 04:53 Dose: 94 ml Mirtazapine (Remeron Solutab) 45 mg PO HS JOHAN Stop: 08/25/18 20:59 Phenytoin Sodium (Dilantin Er) 300 mg PO HS JOHAN Stop: 08/25/18 20:59 Sertraline HCl (Zoloft) 100 mg PO HS JOHAN Stop: 08/25/18 20:59 Resident Activity Tracking Resident Involvement: Resident Care Provided Care Provided: Adult Hospital Medicine
[2018-07-26] MEDS: AZITHROMYCIN 500 MG in DEXTROSE 5% 250 ML IV SCH (12:20)
[2018-07-26] MEDS ORDERED: VANCOMYCIN HCL 1,000 MG in SODIUM CHLORIDE 0.9% 250 ML IV SCH (18:00)
[2018-07-26] MEDS ORDERED: SERTRALINE HCL 100 MG TABLET PO SCH (21:00)
[2018-07-26] MEDS ORDERED: MIRTAZAPINE SOLTAB 15 MG PO SCH (21:00)
[2018-07-26] MEDS ORDERED: PHENYTOIN SODIUM ER 100 MG CAP PO SCH (21:00)
[2018-07-26] MEDS ORDERED: KETOROLAC TROMETHAMINE 10 MG TABLET PO PRN (21:13)
[2018-07-27] MEDS: ALBUT/IPRATROP 3MG/0.5MG NEB 3 ML VIAL NEB SCH ×4 (02:51→14:19)
[2018-07-27] MEDS: methylPREDNISolone 60 MG in SYRINGE 0 ML IV SCH ×2 (05:40→12:05)
[2018-07-27 06:30] LABS: Basophils # (auto) 0.01 K/uL (0-0.2); Basophils % (auto) 0.1 %; Hematocrit (blood only) 41.6 % (42-52); Hemoglobin 13.7 g/dL (14.0-18.0); Immature Granulocytes # (auto) 0.02 K/uL (0.00-0.02); Immature Granulocytes % (auto) 0.2 %; Lymphocytes % (auto) 6.9 %; Mean Corpuscular Hgb Conc 32.9 g/dL (32-36); Mean Corpuscular Volume 86.8 fL (80-100); Mean Platelet Volume 9.2 fL (7.4-10.4); Monocytes # (auto) 0.75 K/uL (0.11-0.59); Monocytes % (auto) 5.7 %; Neutrophils # (auto) 11.45 K/uL (1.4-6.5); Neutrophils % (auto) 87.1 %; Platelet Count 291 K/uL (130-400); RDW Coefficient of Variation 14.5 % (11.5-14.5); RDW Standard Deviation 46.2 fL (36.4-46.3); Red Blood Count 4.79 M/uL (4.7-6.1); White Blood Count 13.13 K/uL (4.8-10.8)
[2018-07-27 07:07] LABS: Albumin Globulin Ratio 1.2 (0.9-2); Albumin Level 3.5 gm/dl (3.4-5.0); BUN Creatinine Ratio 11.7 (10-20); Bilirubin,Total 0.4 mg/dl (0.2-1); Calcium 8.7 mg/dl (8.5-10.1); Creatinine Clr Calc Pharmacy 56.5 ml/min; Est GFR (African American) 80.9; Est GFR (Non-African American) 69.8; Globulin 2.9 gm/dl (2.5-4.0); Potassium 4.9 mmol/L (3.5-5.1); Total Protein 6.4 gm/dl (6.4-8.2)
[2018-07-27] MEDS: AZITHROMYCIN 500 MG in DEXTROSE 5% 250 ML IV SCH (08:45)
[2018-07-27] MEDS: ENOXAPARIN INJ 40 MG/0.4 ML SYR SQ SCH (08:53)
--- NOTE | 2018-07-27 14:27 | Discharge Summary ---
Date of Service July 27, 2018 Admission HPI Per Admitting Provider The patient is a 53-year-old male resident of [facility], with a past medical history including COPD and asthma, who was at 3 days of worsening left-sided chest discomfort, shortness of breath, dyspnea exertion, and cough productive of yellow-green sputum. He was started on a azithromycin 250 mg 3 times per week, Solu-Medrol 25 mg IV today and prednisone 60 mg p.o. today, has continued to worsen throughout the day, and thus presents to the ED for assessment. Principal Diagnosis copd exacerbation Discharge Exam Constitutional WD/WN, vitals as above Eyes PERRL, conjunctivae normal, anicteric sclerae ENMT external ear and nose normal, oropharynx normal Respiratory mild inspiratory/expiratory wheezing, improving Cardiovascular RRR, no murmur, no edema Gastrointestinal (Abdomen) normal bowel sounds, soft, nontender, no hepatosplenomegaly Skin no rashes, warm and dry Psychiatric A+Ox3, euthymic affect Discharge Data Allergies Allergy/AdvReac Type Severity Reaction Status Date / Time Penicillins Allergy Unknown Unverified 07/26/18 04:34 Consultations 07/26/18 03:16 ED Decision to Admit Stat 07/26/18 05:09 Consult Case Management - Discharge Planning Routine Ordered Studies 07/26/18 03:40 CT angio chest PE protocol Urgent Hospital Course (1) Acute exacerbation of chronic obstructive pulmonary disease (COPD): 53 y/o M with PMH COPD, Asthma, Seizure presented to [facility] 07/26 from [facility] with 3 days of worsening left-sided chest discomfort, shortness of breath, dyspnea on exertion, and cough productive of yellow-green sputum. At [facility], he was started on azithromycin 250 mg 3 times per week, and Solu- Medrol 25 mg IV/ prednisone 60 mg p.o. However, pt continued to worsen and was thus transported here. In ER, ABG- PH 7.37, PCO2 44, PO2 60, and pulse ox 89% on 4 L nasal cannula. CXR suggested emphysema, but no focal infiltrate to suggest pneumonia. CTA showed no evidence of PE, no focal infiltrate; advanced emphysema, mild diffuse peribronchial thickening suggesting reactive air disease , and mucous plugging was noted in the lower lobes. The following is the medical management during stay here. 1) Acute respiratory failure with hypoxia/COPD exacerbation -Shortly after admission, pt complained of SOB with CP and L arm numbness. A breathing tx was given and pt felt better shortly thereafter. EKG showed sinus tachy with PVCs. CP unlikely cardiac etiology, likely 2/2 increased SOB/ increased work of breathing. Trops were neg. Repeat ABG 07/26: PH 7.4, PCO2 32, PO2 128. Azithromycin 500 mg IV q24 was continued and initial Vanc/Zosyn started in ER was d/c after CTA findings came back. Pt will continue azithromycin for 3 more days on d/c. Pt continued on Duonebs 3 ml QIDR, Solu- Medrol 60 mg IV every 6 hours. Pt will continue PO steroid taper on d/c (3 days of 40 mg, 3 days of 30 mg, 3 days of 20 mg, 3 days of 10 mg). At time of d/c, pt on 2L NC sat 96, does not appear to have increased work of breathing/SOB. Pt is on appropriate breathing regimen at [facility], please continue. 2) Seizure disorder -Pt was continued on phenytoin ER 300 mg qPM 3) Insomnia/Depression -Pt was continued on sertraline and mirtazapine DVT Prophylaxis with Lovenox. At time of d/c, pt has no other acute concerns or complaints. Total Time Total Time Spent Total Time Spent (In Minutes): <30 min Discharge Plan Discharge Items [facility] Reason For Visit: ACUTE RESPIRATORY FAILURE W/ HYPOXIA Discharge Diagnosis: copd exacerbation Condition: Fair Discharge Goals: Improve disease control and Improve function Activity: Per 'Additional Instructions' section Non-emergency contact: Primary Care Provider Call non-emergency contact if: you have any medication questions and your symptoms worsen Diet: Heart Healthy Addtl Provider Instructions: You were admitted for a COPD exacerbation. Please follow the below instructions on discharge: -You will continue antibiotic azithromycin for 3 more days to finish course. -You will continue an oral steroid taper as follows: 3 days of 40 mg, 3 days of 30 mg, 3 days of 20 mg, 3 days of 10 mg -Continue your breathing treatment regimen that you receive at [facility], it is appropriate for your COPD. Prescriptions: New azithromycin 500 mg tablet 500 mg PO DAILY PRN (Reason: ongoing tx) 3 Days Qty: 3 RF: 0 prednisone 10 mg tablet 10 mg PO DAILY Qty: 30 RF: 0 Continue polyethylene glycol 3350 [Miralax] 17 gram/dose Powder 17 g PO UD RF: 0 polyethylene glycol 3350 [Miralax] 17 gram/dose Powder 17 g PO UD RF: 0 ipratropium-albuterol 0.5 mg-3 mg(2.5 mg base)/3 mL Solution For Nebulization 3 ml INHALATION QID PRN (Reason: Shortness Of Breath) RF: 0 sertraline 100 mg Tablet 100 mg PO HS RF: 0 phenytoin sodium extended 100 mg Capsule 300 mg PO HS RF: 0 salmeterol [Serevent Diskus] 50 mcg/dose Blister With Device 1 inh INHALATION BID RF: 0 mirtazapine 45 mg Tablet 45 mg PO HS RF: 0 bisacodyl 5 mg Tablet 20 mg PO DAILY RF: 0 levalbuterol tartrate [Xopenex HFA] 45 mcg/actuation Hfa Aerosol Inhaler 2 inh INHALATION QID PRN (Reason: Shortness Of Breath) RF: 0 ciclesonide [Alvesco] 160 mcg/actuation Hfa Aerosol Inhaler 1 puff INHALATION BID RF: 0 umeclidinium [Incruse Ellipta] 62.5 mcg/actuation Blister With Device 1 inh INHALATION DAILY RF: 0 Stand-Alone Forms: [facility] Discharge Orders: Discharge Order (Routine); Ordered 07/27/18 Ordered By: Darrel Mullen Admission Data Admit Date/Time: 07/26/18 03:59 Attending Provider: Diallo White Admit Provider: Eron Lawson Primary Care Provider: Ashely BENITEZ Other Providers: Eron Lawson Service: Telemetry Other Interventions: Discharge Summary Assessment (RN) Last Done: 07/27/18 15:32 DC Date/Time DO NOT enter until pt leaves facility: 07/27/18 16:31 Supervising Physician Co-Signing Physician Notes I personally examined the patient and verified all dorsey points of history and exam, discussed case, and agree with decision making with Dr Mullen. Continues to feel better and breathe better. He is not back to baseline yet but he does feel like his breathing is easier. In discussion of discharge the [facility], given his improvement and given that we are now not doing any modalities that could not carry through with there, he notes reluctance to go due to noting that it is just as cold as being outside there. When asked to confirm this he notes that it is not he did, we had our nurse navigator call the alf system to confirm, and it does in fact have heat. They are also able to take care of his current needs, including oxygen. In general he is resting in bed appearing relatively comfortable may be may be very mild respiratory distress. HEENT normocephalic atraumatic mucous membranes are moist. Cardio is regular. Lungs are diminished throughout, but the wheezing is all but resolved, with only the faintest of a wheeze base right. He has no other rhonchi no rales. Acute exacerbation of COPDcausing hypoxiaoverall improving, stable for return to the [facility], slowly weaning the oxygen, continue his inhalers, prednisone taper, finish out a course of Zithromax. Tachycardiathis appears to be due to his respiratory illness. Improving overall, but should be continued to be followed. DVT prophylaxisLovenox utilized during his stay Resident Activity Tracking Resident Involvement: Resident Care Provided Care Provided: Adult Hospital Medicine
[2018-07-28] MEDS ORDERED: VANCOMYCIN TROUGH ONE (05:30)
== END 2018-07-27 16:31 | DRG 190 ==
LOC: ED 01:40 → SUATTDRO 03:59 → 2S 03:59